=== PATIENT | male | born 1975 | race Caucasian/White ===

== ENCOUNTER 2019-02-19 13:16 | Emergency (ER) | payer OTHER ==
[~2019-02-19] VITALS: Ht 190.5 cm; Wt 167.8 kg
--- OUTSIDE RECORDS SUMMARY | 2019-02-19 13:20 | XMS ---
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 Eleanor has no Care Guidelines for this patient. Peter VISIT COUNT (12 MO.) 1 MICHELLE Patel TOTAL 1 NOTE: Visits indicate total known visits. ED/UCC VISIT TRACKING (12 MO.) 02/19/2019 13:17 MICHELLE Donovan OR TYPE: Emergency COMPLAINT: - CHESP PAIN, SOB INPATIENT VISIT TRACKING (12 MO.) No inpatient visits to display in this time frame [id number]
[2019-02-19] MEDS ORDERED: METOPROLOL SUCC25 MG PO (14:06)
[2019-02-19] MEDS ORDERED: TRAMADOL HCL100 MG (14:06)
[2019-02-19] MEDS ORDERED: VENTOLIN HFA18 GM INH (14:07)
--- NOTE | 2019-02-20 06:59 | EKG ---
[facility] [address] [place] [address] Signed Sinus rhythm with 1st degree AV block Rightward axis Nonspecific intraventricular block Abnormal ECG When compared with ECG of 19-FEB-2019 13:21, (Unconfirmed) DC interval has increased Vent. rate has decreased BY 89 BPM Brrls-Rwnpwfjfx-Xvuxy is no longer present Confirmed by ABDIEL ACOSTA MD ([id number] on 02/20/2019 6:59:14 AM Electronically Signed By: ABDIEL ACOSTA MD 02/20/19 0659 PATIENT NAME: MARITO REYES Electrocardiogram DATE OF : 73 PHYSICIAN: ABDIEL ACOSTA MD REPORT #: [id number] REPORT IS CONFIDENTIAL AND NOT TO BE RELEASED WITHOUT AUTHORIZATION
--- NOTE | 2019-02-20 06:59 | EKG ---
[facility] [address] [facility] [place] [address] Signed Sinus tachycardia Ventricular pre-excitation, WPW pattern type A Abnormal ECG No previous ECGs available Confirmed by ABDIEL ACOSTA MD ([id number] on 02/20/2019 6:59:10 AM Electronically Signed By: ABDIEL ACOSTA MD 02/20/19 0659 PATIENT NAME: MARITO REYES Electrocardiogram DATE OF : 73 PHYSICIAN: ABDIEL ACOSTA MD REPORT #: [id number] REPORT IS CONFIDENTIAL AND NOT TO BE RELEASED WITHOUT AUTHORIZATION
== END 2019-02-19 15:04 | disposition home or self-care (01) ==
LOC: ED 13:16
DX: R00.2 Palpitations (principal); Z95.5 Presence of coronary angioplasty implant and graft; Z88.5 Allergy status to narcotic agent; Z79.899 Other long term (current) drug therapy; Z79.891 Long term (current) use of opiate analgesic
CPT/HCPCS: 71045; 80053; 83735; 84484; 85025; 93005; 93010; 99152; 99285-25; J7030